=== PATIENT | female | born 1980 | race Two or more races ===

== ENCOUNTER 2018-04-13 17:50 | Emergency (ER) | payer SELFPAY ==
[2018-04-13] MEDS ORDERED: DIPHTH,PERTUSS(ACELL),TET TOX 0.5 ML DISP.SYRIN. VAX IM (19:30)
[2018-04-13] MEDS: DIPHTH,PERTUSS(ACELL),TET TOX 0.5 ML DISP.SYRIN. VAX IM (19:33)
== END 2018-04-13 19:45 | disposition home or self-care (01) ==
LOC: ER 17:50
DX: S20.362A Insect bite (nonvenomous) of left front wall of thorax, initial encounter (principal); B02.9 Zoster without complications; W57.XXXA Bitten or stung by nonvenomous insect and other nonvenomous arthropods, initial encounter; Y93.89 Activity, other specified; Y92.89 Other specified places as the place of occurrence of the external cause; Y99.8 Other external cause status
CPT/HCPCS: 90471; 90715; 99283